=== PATIENT | male | born 1960 | race Caucasian/White ===

== ENCOUNTER 2017-03-17 12:26 | Emergency (ER) | payer OTHER ==
[~2017-03-17] VITALS: Ht 180.3 cm; Wt 110.5 kg
[~2017-03-17 12:26] MED LIST: ALPRAZOLAM1 MG PO; ATORVASTATIN CA40 MG PO; FLOMAX0.4 MG PO; LOPRESSOR100 M1 PO; PERCOCET 5/31 TABLET PO; PRILOSEC20 MG PO; TRAMADOL HCL50 MG PO; ZOFRAN ODT4 MG PO
[2017-03-17 12:54] LABS: HEMATOCRIT 40.7 % (38.0-50.0); MCH 32.1 PG (29.0-34.0); MCHC 34.9 G/DL (30.0-36.0); MCV 91.9 FL (86-99); MEAN PLAT.VOLUME 7.9 uM^3 (9.0-12.4); PLATELET COUNT 158 K/uL (156-360); RBC DIS.WIDTH-SD 40.4 % (39-53); RED BLOOD COUNT 4.43 M/uL (4.00-5.50); WHITE BLOOD COUNT 6.3 K/uL (4.1-10.2)
[2017-03-17 13:02] LABS: CHLORIDE 97 mEq/L (99-109); POTASSIUM 4.4 mEq/L (3.7-5.4); SODIUM 137 mEq/L (136-147)
[2017-03-17 13:04] LABS: GLUCOSE 113 mg/dL (70-99)
[2017-03-17] MEDS ORDERED: GABAPENTIN600 MG PO (13:04)
[2017-03-17 13:05] LABS: ADD MIUA? YES; BILIRUBIN NEGATIVE; BLOOD MODERATE; COLOR YELLOW ((YELLOW)); GLUCOSE (STRIP) NEGATIVE; KETONES NEGATIVE; LEUKOCYTES NEGATIVE; NITRITE NEGATIVE; PROTEIN (STRIP) 30; SPECIFIC GRAVITY 1.019 (1.000-1.030)
[2017-03-17 13:06] LABS: ANION GAP 12 MEQ/L (2-14); TOTAL BILIRUBIN 0.5 mg/dL (0.0-1.0)
[2017-03-17 13:08] LABS: ALKALINE PHOSPHATASE 58 IU/L (3-129); GFR ESTIMATE (CALCULATED) > 59 mL/min/
[2017-03-17 13:09] LABS: UREA NITROGEN (BUN) 15 mg/dL (9-23)
[2017-03-17 13:09] LABS: BACTERIA NONE SEEN /HPF; EPITHELIAL CELLS NONE SEEN /HPF; HYALINE CASTS 0-5 /LPF; MUCUS NONE SEEN /LPF; UCUL ADDED? NO; WHITE BLOOD CELLS 0-5 /HPF (0-5)
[2017-03-17] MEDS ORDERED: FLOMAX0.4 MG PO (15:50)
[2017-03-17] MEDS ORDERED: NAPROSYN500 MG PO (15:50)
[2017-03-17] MEDS ORDERED: LORTAB 5-325 M1 EACH PO (15:50)
[2017-03-17 16:00] VITALS: BP 139/88
== END 2017-03-17 16:03 | disposition home or self-care (01) ==
LOC: EME 12:26
PROVIDERS: Nurse Practitioner Family
DX: N13.2 Hydronephrosis with renal and ureteral calculous obstruction (principal); R31.9 Hematuria, unspecified; Z87.442 Personal history of urinary calculi; E78.5 Hyperlipidemia, unspecified; I10 Essential (primary) hypertension; F41.9 Anxiety disorder, unspecified
CPT/HCPCS: 74176; 80048; 80053; 81003; 85027; 99281; 99284; J1885